=== PATIENT | male | born 1985 | race Caucasian/White ===

== ENCOUNTER 2020-11-13 18:51 | Emergency (ER) | payer OTHER ==
[~2020-11-13] VITALS: Ht 172.7 cm; Wt 79.8 kg
[2020-11-13 19:09] VITALS: BP 137/88
[2020-11-13] MEDS ORDERED: proparacaine 0.5% ophthalmic drops 15ml EACHEYE ONE (19:30)
[2020-11-13] MEDS ORDERED: moxifloxacin 0.5% ophthalmic drops 3ml LEFTEYE SCH (21:05)
[2020-11-13] MEDS ORDERED: erythromycin ophthalmic ointment 1gm tube LEFTEYE ONE (21:10)
[2020-11-13] MEDS ORDERED: ERYT1OIN6 LEFTEYE (21:10)
[2020-11-13] MEDS ORDERED: HYDR-4383 PO (21:35)
== END 2020-11-13 21:39 | disposition home or self-care (01) ==
LOC: ER 18:52
DX: S05.02XA Injury of conjunctiva and corneal abrasion without foreign body, left eye, initial encounter (principal); H57.12 Ocular pain, left eye; Z79.2 Long term (current) use of antibiotics; Z79.899 Other long term (current) drug therapy; X58.XXXA Exposure to other specified factors, initial encounter; Y93.89 Activity, other specified; Y92.89 Other specified places as the place of occurrence of the external cause; Y99.8 Other external cause status
CPT/HCPCS: 99283